=== PATIENT | male | born 1960 | race African-American/Black ===

== ENCOUNTER 2020-07-10 12:11 | Emergency (ER) | payer MEDICAID ==
[~2020-07-10] VITALS: Ht 182.9 cm; Wt 87.0 kg
[2020-07-10 14:23] LABS: HEMATOCRIT. 38.5 % (42.0-52.0); HEMOGLOBIN. 12.9 g/dL (14.0-18.0); MEAN CORPUSCULAR HEMOGLOBIN 32.1 pg (28.0-32.0); MEAN CORPUSCULAR VOLUME 95.8 fL (80.0-94.0); MEAN PLATELET VOLUME 9.5 fl (7.4-10.4); PLATELET 130 x1000/uL (130-400); RED BLOOD CELL COUNT 4.01 mill/uL (4.7-6.1); RED CELL DISTRIBUTION WIDTH 14.4 % (11.6-14.6)
[2020-07-10 14:24] LABS: *AMPHETAMINES SCREEN URINE NEGATIVE (NEGATIVE); *BARBITURATES SCREEN URINE NEGATIVE (NEGATIVE); *BENZODIAZEPINES SCREEN URINE NEGATIVE (NEGATIVE); *COCAINE SCREEN URINE NEGATIVE (NEGATIVE); METHADONE URINE SCREEN NEGATIVE (NEGATIVE); OPIATES URINE SCREEN NEGATIVE (NEGATIVE)
[2020-07-10 14:25] LABS: CANNABINOID URINE SCREEN PRESUMTIVE POSITIVE (NEGATIVE); PHENCYCLIDINE URINE SCREEN NEGATIVE (NEGATIVE)
[2020-07-10 14:31] LABS: CHLORIDE 101 mEq/L (98-107)
[2020-07-10 14:36] LABS: ETHANOL BLOOD 58 mg/dL
[2020-07-10] MEDS ORDERED: ACETAMINOPHEN 325MG TABLET PO ONE (15:15)
[2020-07-10 15:35] VITALS: BP 159/101
[2020-07-10 17:30] LABS: PLATELET ESTIMATE NORMAL
== END 2020-07-10 17:28 | disposition home or self-care (01) ==
LOC: ER 12:11
DX: R60.0 Localized edema (principal); I10 Essential (primary) hypertension; F12.90 Cannabis use, unspecified, uncomplicated
CPT/HCPCS: 36415; 71045; 80053; 80305; 80320; 83880; 84484; 85025; 93005; 93970; 99285; G0480